=== PATIENT | female | born 1990 | race Hispanic/Latino ===

== ENCOUNTER 2019-08-30 21:13 | Emergency (ER) | payer OTHER, SELFPAY ==
[2019-08-30] MEDS ORDERED: KETOROLAC 30 MG/ML INJ ONE (21:54)
[2019-08-30] MEDS ORDERED: MEPERIDINE HCL 25 MG/0.5 ML ONE (21:54)
[2019-08-30] MEDS ORDERED: dexAMETHasone 10 MG/ML VIAL ONE (21:54)
--- NOTE | 2019-08-30 22:29 | ER ---
Nurse's Notes [facility] Name: Prema Garza Age: 29 yrs Sex: Female : 1990 Arrival Date: 08/30/2019 Time: 21:15 Bed 14 Private MD: Diagnosis: Radiculopathy, lumbosacral region;Muscle spasm of back Presentation: 08/30 21:08 Presenting complaint: Patient states: I am having right lower back pain, that has been jb4 going on for a week. Tonight it is worse. I do have a history of sciatic nerve pain, and if feels like that but worse. 21:08 Transition of care: patient was not received from another setting of care. Onset of jb4 symptoms was August 30, 2019. Risk Assessment: Do you want to hurt yourself or someone else? Patient reports no desire to harm self or others. Initial Sepsis Screen: Does the patient meet any 2 criteria? No. Patient's initial sepsis screen is negative. Does the patient have a suspected source of infection? No. Patient's initial sepsis screen is negative. Care prior to arrival: None. 21:08 Method Of Arrival: Ambulatory jb4 21:08 Acuity: BLANCA 4 jb4 Historical: - Allergies: 21:08 No Known Allergies; jb4 - Home Meds: 21:08 None [Active]; jb4 - PMHx: 21:08 sciatic nerve pain; jb4 - PSHx: 21:08 ; jb4 - Immunization history:: Adult Immunizations up to date. - Social history:: Smoking status: Patient/guardian denies using tobacco. - Ebola Screening: : No symptoms or risks identified at this time. - Family history:: not pertinent. - Hospitalizations: : No recent hospitalization is reported. Screenin:08 Abuse screen: Denies threats or abuse. Nutritional screening: No deficits noted. jb4 Tuberculosis screening: No symptoms or risk factors identified. Fall Risk None identified. Assessment: 21:08 General: Appears in no apparent distress. uncomfortable, Behavior is calm, cooperative, jb4 appropriate for age. Pain: Complains of pain in right low back Pain radiates to right leg Pain currently is 10 out of 10 on a pain scale. Quality of pain is described as stabbing. Neuro: Level of Consciousness is awake, alert, obeys commands, Oriented to person, place, time, situation. Cardiovascular: Patient's skin is warm and dry. Respiratory: Airway is patent Respiratory effort is even, unlabored, Respiratory pattern is regular, symmetrical. GI: No signs and/or symptoms were reported involving the gastrointestinal system. : No signs and/or symptoms were reported regarding the genitourinary system. EENT: No signs and/or symptoms were reported regarding the EENT system. Derm: Skin is intact, Skin is pink, warm \T\ dry. Musculoskeletal: Circulation, motion, and sensation intact. Range of motion: intact in all extremities. 22:47 Reassessment: Patient appears in no apparent distress at this time. Patient and/or jb4 family updated on plan of care and expected duration. Pain level reassessed. Patient is alert, oriented x 3, equal unlabored respirations, skin warm/dry/pink. Patient states feeling better. Vital Signs: 21:08 BP 140 / 109; Pulse 90; Resp 18; Temp 98.9(O); Pulse Ox 99% on R/A; Weight 58.97 kg jb4 (R); Height 5 ft. 1 in. (154.94 cm) (R); Pain 10/10; 22:47 BP 129 / 91; Pulse 72; Resp 16; Pulse Ox 100% on R/A; jb4 21:08 Body Mass Index 24.56 (58.97 kg, 154.94 cm) jb4 ED Course: 21:08 Arm band placed on right wrist. jb4 21:08 Patient has correct armband on for positive identification. Bed in low position. Call jb light in reach. Side rails up X 1. Pulse ox on. NIBP on. 21:15 Patient arrived in ED. ds1 21:16 Garrison Peralta, RN is Primary Nurse. jb4 21:18 Juwan Melendez MD is Attending Physician. rn 21:29 Triage completed. jb4 22:47 No provider procedures requiring assistance completed. IV discontinued, intact, jb4 bleeding controlled, No redness/swelling at site. Pressure dressing applied. Administered Medications: 21:57 Drug: TORadol - Ketorolac 15 mg Route: IVP; Site: right antecubital; jb4 22:30 Follow up: Response: No adverse reaction; Pain is decreased jb4 21:57 Drug: Decadron - Dexamethasone 10 mg Route: IVP; Site: right antecubital; jb4 22:30 Follow up: Response: No adverse reaction; Pain is decreased jb4 21:58 Drug: Demerol 25 mg {Note: Rass score 0.} Route: IVP; Site: right antecubital; jb4 22:30 Follow up: Response: No adverse reaction; Pain is decreased; RASS: Alert and Calm (0) jb4 Outcome: 22:29 Discharge ordered by . rn 22:47 Discharged to home via wheelchair, with family. jb4 22:47 Condition: stable 22:47 Discharge instructions given to patient, family, Instructed on discharge instructions, follow up and referral plans. medication usage, Demonstrated understanding of instructions, follow-up care, medications, Prescriptions given X 3. 22:50 Patient left the ED. jb4 Signatures: Annmarie Ann ds1 Juwan Melendez MD MD rn Bryson, James, RN RN jb4
--- NOTE | 2019-08-30 22:30 | EDPHYS ---
Physician Documentation [facility] Name: Prema Garza Age: 29 yrs Sex: Female : 1990 Arrival Date: 08/30/2019 Time: 21:15 Bed 14 Private MD: ED Physician Juwan Melendez HPI: 08/30 21:50 This 29 yrs old Female presents to ER via Ambulatory with complaints of Back rn Pain. 21:50 The patient presents with pain that is acute. The symptoms are located in the low back. rn Onset: The symptoms/episode began/occurred 1 week(s) ago. The pain radiates to the right leg. Associated signs and symptoms: Pertinent negatives: abdominal pain, chest pain, constipation, dysuria, fever, hematuria, incontinence, urinary retention, vomiting, weakness. Modifying factors: The patient symptoms are alleviated by remaining still, the patient symptoms are aggravated by any movement. Severity of symptoms: At their worst the symptoms were moderate, in the emergency department the symptoms are unchanged. The patient has experienced similar episodes in the past. Reports has known sciatica problems, similar but now radiating down to toes with intermittent tingling. NO bowel/bladder problems, no weakness. Reports began shortly after her child walked on her back to pop it, slowly getting worse. Worse with movement. Feels it right lower back above buttocks, and radiates down right leg. . Historical: - Allergies: 21:08 No Known Allergies; jb4 - Home Meds: 21:08 None [Active]; jb4 - PMHx: 21:08 sciatic nerve pain; jb4 - PSHx: 21:08 ; jb4 - Immunization history:: Adult Immunizations up to date. - Social history:: Smoking status: Patient/guardian denies using tobacco. - Ebola Screening: : No symptoms or risks identified at this time. - Family history:: not pertinent. - Hospitalizations: : No recent hospitalization is reported. ROS: 21:50 Constitutional: Negative for fever, chills, and weight loss, Eyes: Negative for injury, rn pain, redness, and discharge, Neck: Negative for injury, pain, and swelling, Cardiovascular: Negative for chest pain, palpitations, and edema, Respiratory: Negative for shortness of breath, cough, wheezing, and pleuritic chest pain, Abdomen/GI: Negative for abdominal pain, nausea, vomiting, diarrhea, and constipation, Back: + right lower back pain : Negative for injury, bleeding, discharge, and swelling, MS/Extremity: Negative for injury and deformity, Skin: Negative for injury, rash, and discoloration, Neuro: Negative for headache, weakness, and seizure. Exam: 21:50 Constitutional: This is a well developed, well nourished patient who is awake, alert, rn appears uncomfortable Head/Face: Normocephalic, atraumatic. Cardiovascular: Regular rate and rhythm. No pulse deficits. Abdomen/GI: soft, non-tender Back: No spinal tenderness. Skin: Warm, dry with normal turgor. Normal color with no rashes, no lesions, and no evidence of cellulitis. MS/ Extremity: Pulses equal, no cyanosis. Neurovascular intact. Full, normal range of motion. Equal circumference. Neuro: Awake and alert, GCS 15, oriented to person, place, time, and situation. Cranial nerves II-XII grossly intact. Motor strength 5/5 in all extremities. Sensory grossly intact. Vital Signs: 21:08 BP 140 / 109; Pulse 90; Resp 18; Temp 98.9(O); Pulse Ox 99% on R/A; Weight 58.97 kg jb4 (R); Height 5 ft. 1 in. (154.94 cm) (R); Pain 10/10; 22:47 BP 129 / 91; Pulse 72; Resp 16; Pulse Ox 100% on R/A; jb4 21:08 Body Mass Index 24.56 (58.97 kg, 154.94 cm) jb4 MDM: 21:18 Patient medically screened. rn 22:27 Differential diagnosis: chronic back pain, radiculopathy, muscle spasm. Data reviewed: rn vital signs, nurses notes, and as a result, I will discharge patient. Counseling: I had a detailed discussion with the patient and/or guardian regarding: the historical points, exam findings, and any diagnostic results supporting the discharge/admit diagnosis, the need for outpatient follow up, to return to the emergency department if symptoms worsen or persist or if there are any questions or concerns that arise at home. Special discussion: I discussed with the patient/guardian in detail that at this point there is no indication for admission to the hospital. It is understood, however, that if the symptoms persist or worsen the patient needs to return immediately for re-evaluation. ED course: No signs of cord compression, will dc home with symptomatic treatment, no indication for emergent imaging. If worsens will need outpt MRI.. 08/30 21:36 Order name: IV Start; Complete Time: 21:50 rn Administered Medications: 21:57 Drug: TORadol - Ketorolac 15 mg Route: IVP; Site: right antecubital; jb4 22:30 Follow up: Response: No adverse reaction; Pain is decreased jb4 21:57 Drug: Decadron - Dexamethasone 10 mg Route: IVP; Site: right antecubital; jb4 22:30 Follow up: Response: No adverse reaction; Pain is decreased jb4 21:58 Drug: Demerol 25 mg {Note: Rass score 0.} Route: IVP; Site: right antecubital; jb4 22:30 Follow up: Response: No adverse reaction; Pain is decreased; RASS: Alert and Calm (0) jb4 Disposition: 08/30/19 22:29 Discharged to Home. Impression: Radiculopathy, lumbosacral region, Muscle spasm of back. - Condition is Stable. - Discharge Instructions: Lumbosacral Radiculopathy, Muscle Cramps and Spasms. - Prescriptions for Tylenol- Codeine #3 300-30 mg Oral Tablet - take 2 tablets by ORAL route every 6 hours As needed; 15 tablet. Cyclobenzaprine 10 mg Oral Tablet - take 1 tablet by ORAL route every 8 hours As needed; 15 tablet. Medrol (Francisco J) 4 mg Oral Tablets, Dose Pack - take 1 tablet by ORAL route as directed - follow package instructions; 1 packet. - Medication Reconciliation Form, Thank You Letter, Antibiotic Education, Prescription Opioid Use form. - Follow up: Private Physician; When: As needed; Reason: Recheck today's complaints, Re-evaluation by your physician. - Problem is new. - Symptoms have improved. Signatures: Juwan Melendez MD MD rn Bryson, James, RN RN jb4 Corrections: (The following items were deleted from the chart) 22:50 22:29 08/30/2019 22:29 Discharged to Home. Impression: Radiculopathy, lumbosacral jb4 region; Muscle spasm of back. Condition is Stable. Forms are Medication Reconciliation Form, Thank You Letter, Antibiotic Education, Prescription Opioid Use. Follow up: Private Physician; When: As needed; Reason: Recheck today's complaints, Re-evaluation by your physician. Problem is new. Symptoms have improved. rn
[2019-08-31 00:43] VITALS: BP 129/91; O2SAT 100
== END 2019-08-30 22:50 | disposition home or self-care (01) ==
LOC: ER 21:13
DX: M54.17 Radiculopathy, lumbosacral region (principal); M62.830 Muscle spasm of back
CPT/HCPCS: 96374; 96375; 99283; J1100; J2175

== ENCOUNTER 2022-04-14 01:30 | Emergency (ER) | payer SELFPAY ==
[2022-04-14 02:53] LABS: Absolute Lymphocytes (CBC) 1.6 K/uL (0.7-4.9); Hematocrit 32.4 % (36.0-45.0)
[2022-04-14 03:03] LABS: Lymphocytes % 12.8 % (15.3-44.8); MCV 85.4 fL (80-100); MPV 7.9 fL (7.6-11.3); Potassium 3.7 mmol/L (3.5-5.1); RBC Red Blood Cell Count 3.79 M/uL (3.86-4.86)
[2022-04-14 03:04] LABS: Troponin High Sensitivity 3.2 pg/mL (<58.9)
--- NOTE | 2022-04-14 04:21 | EDPHYS ---
Physician Documentation [facility] Name: Prema Garza Age: 32 yrs Sex: Female : 1990 Arrival Date: 04/14/2022 Time: 01:31 Bed 13 Private MD: ED Physician Reinaldo Car HPI: 04/14 06:32 This 32 yrs old Female presents to ER via Ambulatory with complaints of Chest kdr Pain > 30 y/o, Breathing Difficulty. 06:32 The patient or guardian reports chest pain that is located primarily in the substernal kdr area, anterior chest wall. The pain does not radiate. Associated signs and symptoms: Pertinent positives: nausea, Pertinent negatives: diaphoresis, dizziness, headache, recent travel, shortness of breath, syncope, vomiting. The chest pain is described as aching, burning, dull, a pressure, Indigestion. Duration: The patient or guardian reports multiple episodes, that are intermittent, that wax and wane, with no pattern. Modifying factors: The symptoms are alleviated by antacids, the symptoms are aggravated by nothing. Severity of pain: At its worst the pain was mild moderate in the emergency department the pain is unchanged. The patient has experienced similar episodes in the past, chronically. The patient has not recently seen a physician. 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 - Social history:: Smoking status: Patient denies any tobacco usage or history of. ROS: 06:32 Constitutional: Negative for fever, chills, and weight loss, Eyes: Negative for injury, kdr pain, redness, and discharge, ENT: Negative for injury, pain, and discharge, Neck: Negative for injury, pain, and swelling, Respiratory: Negative for shortness of breath, cough, wheezing, and pleuritic chest pain, Abdomen/GI: Negative for abdominal pain, nausea, vomiting, diarrhea, and constipation, Back: Negative for injury and pain, : Negative for injury, bleeding, discharge, and swelling, MS/Extremity: Negative for injury and deformity, Skin: Negative for injury, rash, and discoloration, Neuro: Negative for headache, weakness, numbness, tingling, and seizure activity. Psych: Negative for depression, anxiety, suicide ideation, homicidal ideation, and hallucinations, Allergy/Immunology: Negative for hives, rash, and allergies, Endocrine: Negative for neck swelling, polydipsia, polyuria, polyphagia, and marked weight changes, Hematologic/Lymphatic: Negative for swollen nodes, abnormal bleeding, and unusual bruising. 06:32 Cardiovascular: Positive for chest pain, with movement, of the chest, Negative for edema, orthopnea, palpitations, paroxysmal nocturnal dyspnea, acute changes. Exam: 06:32 Constitutional: This is a well developed, well nourished patient who is awake, alert, kdr and in no acute distress. Head/Face: Normocephalic, atraumatic. Eyes: Pupils equal round and reactive to light, extra-ocular motions intact. Lids and lashes normal. Conjunctiva and sclera are non-icteric and not injected. Cornea within normal limits. Periorbital areas with no swelling, redness, or edema. Neck: Trachea midline, no thyromegaly or masses palpated, and no cervical lymphadenopathy. Supple, full range of motion without nuchal rigidity, or vertebral point tenderness. No Meningismus. Chest/axilla: Normal chest wall appearance and motion. Nontender with no deformity. No lesions are appreciated. Cardiovascular: Regular rate and rhythm with a normal S1 and S2. No gallops, murmurs, or rubs. Normal PMI, no JVD. No pulse deficits. Respiratory: Lungs have equal breath sounds bilaterally, clear to auscultation and percussion. No rales, rhonchi or wheezes noted. No increased work of breathing, no retractions or nasal flaring. Abdomen/GI: Soft, non-tender, with normal bowel sounds. No distension or tympany. No guarding or rebound. No evidence of tenderness throughout. Back: No spinal tenderness. No costovertebral tenderness. Full range of motion. Skin: Warm, dry with normal turgor. Normal color with no rashes, no lesions, and no evidence of cellulitis. MS/ Extremity: Pulses equal, no cyanosis. Neurovascular intact. Full, normal range of motion. Neuro: Awake and alert, GCS 15, oriented to person, place, time, and situation. Cranial nerves II-XII grossly intact. Motor strength 5/5 in all extremities. Sensory grossly intact. Cerebellar exam normal. Normal gait. Psych: Awake, alert, with orientation to person, place and time. Behavior, mood, and affect are within normal limits. Vital Signs: 01:50 BP 195 / 123; Pulse 69; Resp 20; Temp 98.2; Pulse Ox 100% on R/A; Weight 56.7 kg; 1 Height 5 ft. 0 in. (152.40 cm); Pain 10/10; 03:41 BP 132 / 93; Pulse 56; Resp 18; Pulse Ox 95% on R/A; sm5 04:35 BP 129 / 99; Pulse 53; Resp 17; Pulse Ox 95% on R/A; sm5 01:50 Body Mass Index 24.41 (56.70 kg, 152.40 cm) [facility] MDM: 04:20 Patient medically screened. kdr 06:32 Data reviewed: vital signs, nurses notes, lab test result(s), radiologic studies. kdr Counseling: I had a detailed discussion with the patient and/or guardian regarding: the historical points, exam findings, and any diagnostic results supporting the discharge/admit diagnosis, lab results, radiology results, the need for outpatient follow up. 04/14 01:51 Order name: Basic Metabolic Panel; Complete Time: 04:10 04/14 01:51 Order name: CBC with Diff; Complete Time: 04:10 04/14 01:51 Order name: Troponin HS; Complete Time: 04:10 04/14 01:51 Order name: XRAY Chest (1 view) 04/14 01:51 Order name: EKG; Complete Time: 01:53 04/14 01:51 Order name: Cardiac monitoring; Complete Time: 01:51 04/14 01:51 Order name: EKG - Nurse/Tech; Complete Time: 01:51 04/14 01:51 Order name: IV Saline Lock; Complete Time: 02:00 04/14 01:51 Order name: Labs collected and sent; Complete Time: 02:00 04/14 01:51 Order name: O2 Per Protocol; Complete Time: 01:51 04/14 01:51 Order name: O2 Sat Monitoring; Complete Time: 01:51 sm5 Administered Medications: No medications were administered Disposition Summary: 04/14/22 04:20 Discharge Ordered Location: Home kdr Problem: new kdr Symptoms: have improved kdr Condition: Stable kdr Diagnosis - Chest pain, unspecified kdr - Dyspepsia kdr Followup: kdr - With: Private Physician - When: 2 - 3 days - Reason: If symptoms return, Further diagnostic work-up, Recheck today's complaints, Continuance of care, Re-evaluation by your physician Discharge Instructions: - Discharge Summary Sheet 5 Forms: - Medication Reconciliation Form kdr - Thank You Letter kdr - Antibiotic Education kdr - Prescription Opioid Use kdr - Work release form 5 Signatures: Dispatcher [employer] EDReinaldo Hardwick MD MD kdr Elsie Miller RN RN sm5 Jigna Suárez PA PA sb3 Edda Melendez RN RN 1
--- NOTE | 2022-04-14 04:21 | ER ---
Nurse's Notes [facility] Name: Prema Garza Age: 32 yrs Sex: Female : 1990 Arrival Date: 04/14/2022 Time: 01:31 Bed 13 Private MD: Diagnosis: Chest pain, unspecified;Dyspepsia Presentation: 04/14 01:50 Chief complaint: Patient states: chest pain off and on since 18, she stated it is much bh1 worse today then it has ever been. she stated they told her in the past she had acid reflux but never prescribed her anything. Coronavirus screen: Vaccine status: Patient reports being unvaccinated. At this time, the client does not indicate any symptoms associated with coronavirus-19. Ebola Screen: Patient negative for fever greater than or equal to 101.5 degrees Fahrenheit, and additional compatible Ebola Virus Disease symptoms. Initial Sepsis Screen: Does the patient meet any 2 criteria? No. Patient's initial sepsis screen is negative. Does the patient have a suspected source of infection? No. Patient's initial sepsis screen is negative. Risk Assessment: Do you want to hurt yourself or someone else? Patient reports no desire to harm self or others. Onset of symptoms was April 14, 2022. 01:50 Method Of Arrival: Ambulatory [facility] 01:50 Acuity: BLANCA 3 [facility] Triage Assessment: 01:52 General: Appears in no apparent distress. uncomfortable, Behavior is calm, cooperative, 1 appropriate for age. Pain: Complains of pain in xiphoid area and mid-sternal area. Cardiovascular: Chest pain is described as "worst pain of my life". 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 - Social history:: Smoking status: Patient denies any tobacco usage or history of. Screenin:01 Abuse screen: Denies threats or abuse. Denies injuries from another. Nutritional sm5 screening: No deficits noted. Tuberculosis screening: No symptoms or risk factors identified. Fall Risk None identified. Assessment: 02:01 General: Appears in no apparent distress. Behavior is cooperative. Pain: Complains of sm5 pain in chest Pain does not radiate. Pain began 3 hours ago. Neuro: Level of Consciousness is awake, alert, obeys commands, Oriented to person, place, time, situation. Cardiovascular: Reports chest pain, Capillary refill < 3 seconds Patient's skin is warm and dry. Rhythm is regular. Respiratory: Airway is patent Trachea midline Respiratory effort is even, unlabored. 04:36 Reassessment: No changes from previously documented assessment. Patient and/or family sm5 updated on plan of care and expected duration. Pain level reassessed. Vital Signs: 01:50 BP 195 / 123; Pulse 69; Resp 20; Temp 98.2; Pulse Ox 100% on R/A; Weight 56.7 kg; 1 Height 5 ft. 0 in. (152.40 cm); Pain 10/10; 03:41 BP 132 / 93; Pulse 56; Resp 18; Pulse Ox 95% on R/A; sm5 04:35 BP 129 / 99; Pulse 53; Resp 17; Pulse Ox 95% on R/A; sm5 01:50 Body Mass Index 24.41 (56.70 kg, 152.40 cm) [facility] ED Course: 01:31 Patient arrived in ED. bp1 01:40 Elsie Miller, AGNIESZKA is Primary Nurse. 5 01:52 Triage completed. 1 01:52 Arm band placed on right wrist. EKG completed in triage. Results shown to MD. bh1 02:00 Inserted saline lock: 20 gauge in right antecubital area, using aseptic technique. sm5 Blood collected. Patient maintains SpO2 saturation greater than 95% on room air. 02:01 Patient has correct armband on for positive identification. Placed in gown. Bed in low sm5 position. Call light in reach. Side rails up X2. Client placed on continuous cardiac and pulse oximetry monitoring. NIBP monitoring applied. 02:41 XRAY Chest (1 view) In Process Unspecified. EDMS 03:06 Reinaldo Car MD is Attending Physician. kdr 04:36 No provider procedures requiring assistance completed. IV discontinued. sm5 Administered Medications: No medications were administered Medication: 02:01 VIS not applicable for this client. sm5 Outcome: 04:20 Discharge ordered by . kdr 04:36 Discharged to home ambulatory, with significant other. [facility] 04:36 Condition: stable 04:36 Discharge instructions given to patient, significant other, Instructed on discharge instructions, follow up and referral plans. Demonstrated understanding of instructions, follow-up care. 04:36 Patient left the ED. 5 Signatures: Dispatcher [employer] EDMS Reinaldo Car MD MD kdr Paniauga, Brittany bp1 Mazur, Sarah RN RN 5 MelendezEdda vargas RN RN [facility]
[2022-04-14 06:09] VITALS: TEMP 98.2
[2022-04-14 06:11] VITALS: O2SAT 95
[2022-04-14 06:13] VITALS: BP 129/99
--- NOTE | 2022-04-14 13:02 | EKG ---
Test Date: 2022-04-14 Test Time: 01:40:45 [place]: MEASUREMENT RESULTS: Intervals: Rate: 49 MA: 178 QRSD: 90 QT: 384 QTc: 346 [place]: P: 19 MA: 178 QRS: 4 T: 38 INTERPRETIVE STATEMENTS: Sinus bradycardia with sinus arrhythmia Septal infarct, age undetermined Abnormal ECG Compared to ECG 03/25/2008 01:56:45 Myocardial infarct finding now present Electronically Signed On 04-14-22 13:01:28 CDT by Nahum Bills
--- NOTE | 2022-04-14 14:55 | RAD REPORT ---
EXAM DESCRIPTION: RAD - Chest Single View - 04/14/2022 2:39 am CLINICAL HISTORY: The patient is 32 years old and is Female; CHEST PAIN TECHNIQUE: Frontal view of the chest. COMPARISON: No relevant prior studies available. FINDINGS: Lungs: Unremarkable. No consolidation. Pleural space: Unremarkable. No pneumothorax. Heart: Unremarkable. Mediastinum: Unremarkable. Bones/joints: Unremarkable. IMPRESSION: No acute findings in the chest. Electronically signed by: Brynat Patino MD 04/14/2022 2:54 AM CDT Due to temporary technical issues with the PACS/Fluency reporting system, reports are being signed by the in house radiologists without review as a courtesy to insure prompt reporting. The interpreting radiologist is fully responsible for the content of the report.
== END 2022-04-14 04:36 | disposition home or self-care (01) ==
LOC: ER 01:30
DX: R07.89 Other chest pain (principal); R10.13 Epigastric pain
CPT/HCPCS: 36415; 71045; 80048; 84484; 85025; 93005; 99284